=== PATIENT | male | born 1950 | race Caucasian/White ===

== ENCOUNTER 2017-02-19 11:51 | Inpatient (IN) | payer OTHER ==
[~2017-02-19] VITALS: Ht 177.8 cm; Wt 83.1 kg
[~2017-02-19 11:51] MED LIST: ALBU18 IN; ASPI-247; BUDE0.5S NEB; CARV3.1240; FLUT500M2 IN; FORM1POW2; IBUP1POW8; IPRAAER6 IN; LISI-275; LORA-205 PO; NITR0.4S29 SL; PLAVIX 75MG; SERT-135 PO; SIMV-8; SLEEP AIDS; TRAM50TA2; ZALE10CA44 PO
[2017-02-19 12:25] LABS: Basophils # (auto) 0.1 uL; Basophils % (auto) 1.2 % (0.0-2.0); Eosinophils # (auto) 0.2 uL; Eosinophils % (auto) 1.7 % (0.0-7.0); Hematocrit 45.3 % (41.0-53.0); Hemoglobin 14.9 g/dL (13.5-17.5); Lymphocytes # (auto) 2.4 uL; Lymphocytes % (auto) 24.5 % (10.0-50.0); Mean Corpuscular Hemoglobin 28.7 pg (28.0-32.0); Mean Corpuscular Volume 87.1 fL (80.0-100.0); Mean Platelet Volume 8.4 fL (7.4-10.4); Monocytes # (auto) 0.6 uL; Monocytes % (auto) 5.9 % (0.0-12.0); Neutrophils # (auto) 6.5 uL; Neutrophils % (auto) 66.7 % (37.0-80.0); Platelet Count (auto) 311 10^3/uL (140-450); Red Cell Distribution Width 16.8 % (11.6-16.0); SUSPECT VIEW TRANSMISSION; White Blood Cell 9.7 10^3/uL (4.4-10.8)
[2017-02-19 12:47] LABS: Albumin 3.7 g/dL (3.4-5.0); Alkaline Phosphatase 94 U/L (45-117); Anion Gap 5 (5-15); Aspartate Aminotransferase 12 U/L (15-37); BUN/Creatinine Ratio 20.5; Bilirubin, Total 0.4 mg/dL (0.2-1.0); Blood Urea Nitrogen 18 mg/dL (7-18); Calcium 8.7 mg/dL (8.5-10.1); Carbon Dioxide 29 mmol/L (21-32); Chloride 106 mmol/L (98-107); GFR African American 112 mL/min; GFR Non-African American 92 mL/min; Glucose 101 mg/dL (74-106); Magnesium 2.5 mg/dL (1.6-2.6); Potassium 4.8 mmol/L (3.5-5.1); Sodium 140 mmol/L (136-145); Total Protein 7.2 g/dL (6.4-8.2)
[2017-02-19] MEDS ORDERED: IPRATROPIUM BROM 0.5 MG/2.5ML INH SOL NEB ONE (13:30)
[2017-02-19] MEDS ORDERED: ALBUTEROL SULF 2.5 MG/0.5ML(0.5%) NEB SOLN NEB ONE (13:30)
[2017-02-19] MEDS ORDERED: methylPREDNISolone SOD SUCC 125 MG/2 ML VL IV ONE (13:30)
[2017-02-19] MEDS ORDERED: LORazepam 2MG/ML-1ML VIAL IV ONE (14:15)
[2017-02-19] MEDS ORDERED: AZITHROMYCIN 500MG/D5W 250ML 250 ML IV ONE ×2 (16:00→17:30)
[2017-02-19] MEDS ORDERED: cefTRIAXone 1GM/50ML D5W 50 ML IV ONE ×2 (16:00→16:45)
[2017-02-19 16:39] VITALS: BP 128/83
[2017-02-19] MEDS ORDERED: CLOPIDOGREL BISULFATE 75 MG TAB PO ONE (17:00)
[2017-02-19] MEDS ORDERED: SERTRALINE HCL 50 MG TAB PO ONE (17:00)
[2017-02-19] MEDS ORDERED: LISINOPRIL 5 MG TAB PO ONE (17:00)
[2017-02-19] MEDS ORDERED: ASPirin 81 mg TAB PO ONE (17:00)
[2017-02-19] MEDS ORDERED: BUDESONIDE (INHALATION) 0.5 MG/2 ML NEB ONE (18:59)
[2017-02-19] MEDS ORDERED: ALBUTEROL SULF 2.5 MG/0.5ML(0.5%) NEB SOLN ONE (18:59)
[2017-02-19] MEDS ORDERED: IPRATROPIUM BROM 0.5 MG/2.5ML INH SOL ONE (18:59)
[2017-02-19] MEDS ORDERED: CLOP75TA41 PO (19:32)
[2017-02-19] MEDS ORDERED: SIMV-13 PO (19:32)
[2017-02-19 22:00] VITALS: BP 119/62
[2017-02-19] MEDS ORDERED: CARVEDILOL 3.125 MG TAB PO SCH (22:00)
[2017-02-19] MEDS ORDERED: methylPREDNISolone SOD SUCC 40 MG/ML VL IV SCH (22:00)
[2017-02-19] MEDS ORDERED: ATORVASTATIN 20 MG TAB PO SCH ×2 (22:00)
[2017-02-19] MEDS ORDERED: BUDESONIDE (INHALATION) 0.5 MG/2 ML NEB NEB SCH (22:00)
[2017-02-19] MEDS: methylPREDNISolone SOD SUCC 40 MG/ML VL IV SCH (22:12)
[2017-02-19] MEDS: CARVEDILOL 3.125 MG TAB PO SCH (22:13)
[2017-02-19] MEDS ORDERED: TEMAZEPAM 15 MG CAP PO PRN (22:30)
[2017-02-19] MEDS: HYDROcodone-ACET 5/325MG TAB PO PRN (23:42)
[2017-02-20 05:00] VITALS: BP 111/61
[2017-02-20] MEDS ORDERED: IPRATROPIUM BROM 0.5 MG/2.5ML INH SOL ONE ×2 (05:27→10:33)
[2017-02-20] MEDS ORDERED: ALBUTEROL SULF 2.5 MG/0.5ML(0.5%) NEB SOLN ONE ×2 (05:27→10:33)
[2017-02-20] MEDS ORDERED: BUDESONIDE (INHALATION) 0.5 MG/2 ML NEB ONE (05:27)
[2017-02-20] MEDS: methylPREDNISolone SOD SUCC 40 MG/ML VL IV SCH ×2 (05:55→14:15)
[2017-02-20] MEDS: ALBUTEROL SULF 2.5 MG/0.5ML(0.5%) NEB SOLN NEB SCH ×2 (06:36→11:50)
[2017-02-20] MEDS: IPRATROPIUM BROM 0.5 MG/2.5ML INH SOL NEB SCH ×2 (06:36→11:50)
[2017-02-20 08:35] VITALS: BP 122/71
[2017-02-20] MEDS ORDERED: cefTRIAXone 1GM/50ML D5W 50 ML IV SCH (09:00)
[2017-02-20] MEDS: CARVEDILOL 3.125 MG TAB PO SCH (09:28)
[2017-02-20] MEDS ORDERED: ASPirin 81 mg TAB PO SCH ×2 (10:00)
[2017-02-20] MEDS ORDERED: CLOPIDOGREL BISULFATE 75 MG TAB PO SCH ×2 (10:00)
[2017-02-20] MEDS ORDERED: SERTRALINE HCL 50 MG TAB PO SCH ×2 (10:00)
[2017-02-20] MEDS ORDERED: LISINOPRIL 5 MG TAB PO SCH ×2 (10:00)
[2017-02-20] MEDS ORDERED: AZITHROMYCIN 500MG/D5W 250ML 250 ML IV SCH (10:00)
[2017-02-20] MEDS: HYDROcodone-ACET 5/325MG TAB PO PRN (11:30)
[2017-02-20 12:32] VITALS: BP_SYST 119; BP_SYST 143; BP_DIAS 63; BP_DIAS 77
== END 2017-02-20 15:55 | disposition home or self-care (01) | DRG 190 ==
LOC: ER 11:51 → OVERFLOW 11:52 → ER 12:13 → WEST WING 18:31
PROVIDERS: ADMIT Internal Medicine; ATTEND Family Medicine
DX: J44.1 Chronic obstructive pulmonary disease with (acute) exacerbation (principal); J96.00 Acute respiratory failure, unspecified whether with hypoxia or hypercapnia; J18.9 Pneumonia, unspecified organism; J44.0 Chronic obstructive pulmonary disease with (acute) lower respiratory infection; I25.10 Atherosclerotic heart disease of native coronary artery without angina pectoris; E78.5 Hyperlipidemia, unspecified; F17.210 Nicotine dependence, cigarettes, uncomplicated; I10 Essential (primary) hypertension
CPT/HCPCS: 36415; 71010; 71020; 80053; 83036; 83735; 84484; 85025; 93005; 94640; J0696

== ENCOUNTER 2017-03-09 13:15 | Inpatient (IN) | payer OTHER ==
[~2017-03-09] VITALS: Ht 177.8 cm; Wt 86.5 kg
[~2017-03-09 13:15] MED LIST changes: -ALBU18 IN; -BUDE0.5S NEB; +CLOP75TA41 PO; -PLAVIX 75MG; +SIMV-13 PO; -SIMV-8; -SLEEP AIDS; -TRAM50TA2; -ZALE10CA44 PO
[2017-03-09 13:46] LABS: Basophils # (auto) 0 uL; Basophils % (auto) 0.4 % (0.0-2.0); Eosinophils # (auto) 0.1 uL; Eosinophils % (auto) 1.5 % (0.0-7.0); Hematocrit 46.9 % (41.0-53.0); Hemoglobin 15.6 g/dL (13.5-17.5); Lymphocytes # (auto) 1.9 uL; Lymphocytes % (auto) 23.9 % (10.0-50.0); Mean Corpuscular Hemoglobin 28.7 pg (28.0-32.0); Mean Corpuscular Hgb Conc. 33.3 g/dL (32.0-36.0); Mean Corpuscular Volume 86.3 fL (80.0-100.0); Mean Platelet Volume 8.1 fL (7.4-10.4); Monocytes # (auto) 0.5 uL; Monocytes % (auto) 6.5 % (0.0-12.0); Neutrophils # (auto) 5.4 uL; Neutrophils % (auto) 67.7 % (37.0-80.0); Platelet Count (auto) 298 10^3/uL (140-450); White Blood Cell 8.1 10^3/uL (4.4-10.8)
[2017-03-09 14:10] LABS: Albumin 3.7 g/dL (3.4-5.0); Anion Gap 12 (5-15); Aspartate Aminotransferase 13 U/L (15-37); BUN/Creatinine Ratio 13.3; Blood Urea Nitrogen 11 mg/dL (7-18); Calcium 8.8 mg/dL (8.5-10.1); Carbon Dioxide 24 mmol/L (21-32); Chloride 105 mmol/L (98-107); GFR African American 120 mL/min; GFR Non-African American 99 mL/min; Glucose 111 mg/dL (74-106); Sodium 141 mmol/L (136-145)
[2017-03-09 14:15] LABS: Alkaline Phosphatase 84 U/L (45-117); Bilirubin, Total 0.5 mg/dL (0.2-1.0); Total Protein 7.4 g/dL (6.4-8.2)
[2017-03-09] MEDS ORDERED: methylPREDNISolone SOD SUCC 125 MG/2 ML VL IV ONE (16:30)
[2017-03-09] MEDS ORDERED: LORazepam 2MG/ML-1ML VIAL IV ONE (16:30)
[2017-03-09] MEDS: SODIUM CHLORIDE 0.9% 1,000 ML IV SCH (16:30)
[2017-03-09] MEDS ORDERED: IPRATROPIUM BROM 0.5 MG/2.5ML INH SOL NEB ONE (16:30)
[2017-03-09] MEDS ORDERED: cefTRIAXone 1GM/50ML D5W 50 ML IV ONE (16:30)
[2017-03-09] MEDS ORDERED: ALBUTEROL SULF 2.5 MG/0.5ML(0.5%) NEB SOLN NEB ONE (16:30)
[2017-03-09] MEDS ORDERED: LACTULOSE 20Gm/30ML SOLN PO PRN (16:45)
[2017-03-09] MEDS ORDERED: MORPHINE SULF INJ 2 MG/ML SYRINGE 1ML IV PRN (16:45)
[2017-03-09] MEDS ORDERED: LORazepam 0.5 MG TAB PO PRN (16:45)
[2017-03-09] MEDS ORDERED: PROMETHAZINE HCL 25 MG/ML 1ML IV PRN (16:45)
[2017-03-09] MEDS ORDERED: ACETAMINOPHEN 500 MG TAB PO PRN (16:45)
[2017-03-09] MEDS ORDERED: ALBUTEROL SULF 2.5 MG/0.5ML(0.5%) NEB SOLN NEB PRN (16:45)
[2017-03-09] MEDS ORDERED: NITROGLYCERIN 0.4 MG SL TAB SL PRN (16:45)
[2017-03-09] MEDS ORDERED: ENOXAPARIN SOD 40 MG/0.4 ML SYRINGE SC ONE (17:30)
[2017-03-09] MEDS: methylPREDNISolone SOD SUCC 40 MG/ML VL IV SCH (18:00)
[2017-03-09] MEDS: IPRATROPIUM BROM 0.5 MG/2.5ML INH SOL NEB SCH ×2 (18:19→23:58)
[2017-03-09] MEDS: ALBUTEROL SULF 2.5 MG/0.5ML(0.5%) NEB SOLN NEB SCH ×2 (18:19→23:58)
[2017-03-09] MEDS: DOXYCYCLINE HYC 100MG/250ML 250 ML IV SCH (18:30)
[2017-03-09] MEDS: HYDROcodone-ACET 5/325MG TAB PO PRN (20:04)
[2017-03-09 20:17] LABS: Urine Bilirubin Negative (Negative); Urine Blood Negative /uL (Negative); Urine Color Yellow (Yellow); Urine Glucose Normal (Normal); Urine Ketone Negative (Negative); Urine Mucus FEW (None Seen); Urine Nitrite Negative (Negative); Urine RBC 2 /hpf (0 - 3)
[2017-03-09 21:34] VITALS: BP 117/55
[2017-03-09] MEDS: MORPHINE SULF INJ 2 MG/ML SYRINGE 1ML IV PRN (21:47)
[2017-03-09 21:56] VITALS: BP 108/52
[2017-03-09] MEDS: TEMAZEPAM 15 MG CAP PO PRN (22:32)
[2017-03-10 05:11] VITALS: BP 107/65
[2017-03-10] MEDS: SODIUM CHLORIDE 0.9% 1,000 ML IV SCH ×2 (05:33→21:20)
[2017-03-10] MEDS: DOXYCYCLINE HYC 100MG/250ML 250 ML IV SCH ×2 (05:33→18:27)
[2017-03-10] MEDS: methylPREDNISolone SOD SUCC 40 MG/ML VL IV SCH ×5 (05:34→23:34)
[2017-03-10] MEDS: IPRATROPIUM BROM 0.5 MG/2.5ML INH SOL NEB SCH ×4 (06:13→22:43)
[2017-03-10] MEDS: ALBUTEROL SULF 2.5 MG/0.5ML(0.5%) NEB SOLN NEB SCH ×2 (06:13→11:34)
[2017-03-10 09:00] VITALS: BP 119/66
[2017-03-10] MEDS: MORPHINE SULF INJ 2 MG/ML SYRINGE 1ML IV PRN ×3 (09:09→21:19)
[2017-03-10] MEDS: ENOXAPARIN SOD 40 MG/0.4 ML SYRINGE SC SCH (10:33)
[2017-03-10 13:00] VITALS: BP 124/64
[2017-03-10] MEDS ORDERED: SERTRALINE HCL 50 MG TAB PO ONE (16:00)
[2017-03-10] MEDS ORDERED: CARVEDILOL 3.125 MG TAB PO ONE (16:00)
[2017-03-10] MEDS ORDERED: ASPirin 325 MG TAB PO ONE (16:00)
[2017-03-10] MEDS ORDERED: LISINOPRIL 5 MG TAB PO ONE (16:00)
[2017-03-10] MEDS ORDERED: CLOPIDOGREL BISULFATE 75 MG TAB PO ONE (16:00)
[2017-03-10 17:00] VITALS: BP 136/70
[2017-03-10] MEDS: LORazepam 0.5 MG TAB PO PRN (17:07)
[2017-03-10] MEDS: BUDESONIDE (INHALATION) 0.5 MG/2 ML NEB NEB SCH (19:20)
[2017-03-10 22:23] VITALS: BP 124/69
[2017-03-10] MEDS: TEMAZEPAM 15 MG CAP PO PRN (22:29)
[2017-03-10] MEDS: ATORVASTATIN 20 MG TAB PO SCH (22:29)
[2017-03-11] MEDS: IPRATROPIUM BROM 0.5 MG/2.5ML INH SOL NEB SCH ×5 (02:41→21:53)
[2017-03-11] MEDS: DOXYCYCLINE HYC 100MG/250ML 250 ML IV SCH ×2 (05:19→18:10)
[2017-03-11 05:25] VITALS: BP 121/70
[2017-03-11] MEDS: LORazepam 0.5 MG TAB PO PRN ×3 (05:29→19:51)
[2017-03-11] MEDS: methylPREDNISolone SOD SUCC 40 MG/ML VL IV SCH ×3 (06:10→18:11)
[2017-03-11] MEDS: BUDESONIDE (INHALATION) 0.5 MG/2 ML NEB NEB SCH ×2 (07:17→19:02)
[2017-03-11] MEDS: MORPHINE SULF INJ 2 MG/ML SYRINGE 1ML IV PRN (08:48)
[2017-03-11] MEDS: SODIUM CHLORIDE 0.9% 1,000 ML IV SCH ×2 (08:49→21:24)
[2017-03-11 09:00] VITALS: BP 124/75
[2017-03-11] MEDS: SERTRALINE HCL 50 MG TAB PO SCH (10:01)
[2017-03-11] MEDS: CARVEDILOL 3.125 MG TAB PO SCH (10:02)
[2017-03-11] MEDS: ASPirin 325 MG TAB PO SCH (10:03)
[2017-03-11] MEDS: CLOPIDOGREL BISULFATE 75 MG TAB PO SCH (10:03)
[2017-03-11] MEDS: LISINOPRIL 5 MG TAB PO SCH (10:03)
[2017-03-11] MEDS: ENOXAPARIN SOD 40 MG/0.4 ML SYRINGE SC SCH (10:04)
[2017-03-11] MEDS: HYDROcodone-ACET 5/325MG TAB PO PRN ×2 (12:00→18:11)
[2017-03-11 13:00] VITALS: BP 118/66
[2017-03-11 17:00] VITALS: BP 129/72
[2017-03-11] MEDS: ALBUTEROL SULF 2.5 MG/0.5ML(0.5%) NEB SOLN NEB PRN (19:01)
[2017-03-11] MEDS: TEMAZEPAM 15 MG CAP PO PRN (21:23)
[2017-03-11] MEDS: ATORVASTATIN 20 MG TAB PO SCH (21:24)
[2017-03-11 22:00] VITALS: BP 114/64
[2017-03-12] MEDS: HYDROcodone-ACET 5/325MG TAB PO PRN (00:12)
[2017-03-12] MEDS: methylPREDNISolone SOD SUCC 40 MG/ML VL IV SCH ×2 (00:12→05:40)
[2017-03-12 05:00] VITALS: BP 106/68
[2017-03-12] MEDS: DOXYCYCLINE HYC 100MG/250ML 250 ML IV SCH (05:40)
[2017-03-12] MEDS: ALBUTEROL SULF 2.5 MG/0.5ML(0.5%) NEB SOLN NEB PRN (07:23)
[2017-03-12] MEDS: IPRATROPIUM BROM 0.5 MG/2.5ML INH SOL NEB SCH (07:24)
[2017-03-12 09:00] VITALS: BP 126/73
[2017-03-12] MEDS: ENOXAPARIN SOD 40 MG/0.4 ML SYRINGE SC SCH (09:08)
[2017-03-12] MEDS: CLOPIDOGREL BISULFATE 75 MG TAB PO SCH (09:09)
[2017-03-12] MEDS: LISINOPRIL 5 MG TAB PO SCH (09:09)
[2017-03-12] MEDS: ASPirin 325 MG TAB PO SCH (09:09)
[2017-03-12] MEDS: SERTRALINE HCL 50 MG TAB PO SCH (09:10)
[2017-03-12] MEDS: CARVEDILOL 3.125 MG TAB PO SCH (09:10)
[2017-03-12] MEDS: LORazepam 0.5 MG TAB PO PRN (09:16)
[2017-03-12 09:36] VITALS: BP 126/73
[2017-03-12] MEDS: SODIUM CHLORIDE 0.9% 1,000 ML IV SCH (11:17)
== END 2017-03-12 11:00 | disposition home or self-care (01) | DRG 190 ==
LOC: ER 13:17 → TELE 13:18 → TELE-WESTW 20:35
PROVIDERS: ADMIT Internal Medicine; ATTEND Internal Medicine
DX: J44.1 Chronic obstructive pulmonary disease with (acute) exacerbation (principal); J96.20 Acute and chronic respiratory failure, unspecified whether with hypoxia or hypercapnia; E78.5 Hyperlipidemia, unspecified; F17.210 Nicotine dependence, cigarettes, uncomplicated; I10 Essential (primary) hypertension; I25.10 Atherosclerotic heart disease of native coronary artery without angina pectoris; J98.4 Other disorders of lung; I25.2 Old myocardial infarction; Z82.0 Family history of epilepsy and other diseases of the nervous system; Z82.49 Family history of ischemic heart disease and other diseases of the circulatory system; Z82.3 Family history of stroke; Z95.5 Presence of coronary angioplasty implant and graft; Z99.81 Dependence on supplemental oxygen; Z79.899 Other long term (current) drug therapy; Z71.6 Tobacco abuse counseling
CPT/HCPCS: 36415; 71010; 80053; 81001; 84484; 85025; 87070; 87081; 87205; 93005; 94640; 94644; 96365; 96372; 96375; J0696; J3490

== ENCOUNTER 2017-04-21 08:03 | Emergency (ER) | payer OTHER ==
[~2017-04-21] VITALS: Ht 177.8 cm; Wt 79.4 kg
[2017-04-21] MEDS ORDERED: SODIUM CHLORIDE 0.9% 1,000 ML IV ONE (08:51)
[2017-04-21] MEDS ORDERED: MORPHINE SULFATE 4 MG/ML SYRG IV ONE (09:00)
[2017-04-21] MEDS ORDERED: ASPirin 81 mg TAB PO ONE (09:00)
[2017-04-21] MEDS ORDERED: NITROGLYCERIN 0.4 MG SL TAB SL ONE (09:00)
[2017-04-21] MEDS ORDERED: ONDANSETRON HCL 4 MG/2 ML VIAL IV ONE (09:00)
[2017-04-21 09:25] LABS: Basophils # (auto) 0 uL; Basophils % (auto) 0.5 % (0.0-2.0); CONDITION Y; Eosinophils # (auto) 0.2 uL; Eosinophils % (auto) 2.5 % (0.0-7.0); Hematocrit 43.9 % (41.0-53.0); Hemoglobin 14.8 g/dL (13.5-17.5); Lymphocytes # (auto) 1.9 uL; Lymphocytes % (auto) 23.7 % (10.0-50.0); Mean Corpuscular Hemoglobin 29.8 pg (28.0-32.0); Mean Corpuscular Hgb Conc. 33.7 g/dL (32.0-36.0); Mean Corpuscular Volume 88.3 fL (80.0-100.0); Mean Platelet Volume 7.9 fL (7.4-10.4); Monocytes # (auto) 0.4 uL; Monocytes % (auto) 5.1 % (0.0-12.0); Neutrophils # (auto) 5.4 uL; Neutrophils % (auto) 68.2 % (37.0-80.0); Platelet Count (auto) 317 10^3/uL (140-450); Red Cell Distribution Width 16.4 % (11.6-16.0); White Blood Cell 7.9 10^3/uL (4.4-10.8)
[2017-04-21 09:40] LABS: INR 0.98 (0.9-1.15); Partial Thromboplastin Time 27.7 sec (22.64-33.71); Prothrombin Time 10.7 sec (9.37-12.3)
[2017-04-21 09:55] LABS: Albumin 3.5 g/dL (3.4-5.0); Alkaline Phosphatase 70 U/L (45-117); Anion Gap 5 (5-15); Aspartate Aminotransferase 8 U/L (15-37); BUN/Creatinine Ratio 17.4; Bilirubin, Total 0.5 mg/dL (0.2-1.0); Blood Urea Nitrogen 12 mg/dL (7-18); Calcium 8.6 mg/dL (8.5-10.1); Carbon Dioxide 27 mmol/L (21-32); Chloride 106 mmol/L (98-107); GFR African American 148 mL/min; GFR Non-African American 122 mL/min; Glucose 97 mg/dL (74-106); Potassium 4.1 mmol/L (3.5-5.1); Sodium 138 mmol/L (136-145)
[2017-04-21] MEDS ORDERED: LORazepam 0.5 MG TAB PO ONE (10:00)
[2017-04-21 10:53] LABS: Urine Bilirubin Negative (Negative); Urine Blood Negative /uL (Negative); Urine Color Yellow (Yellow); Urine Glucose Normal (Normal); Urine Ketone Negative (Negative); Urine Mucus FEW (None Seen); Urine Nitrite Negative (Negative); Urine RBC 2 /hpf (0 - 3); Urine Squamous Epithelial Cell FEW /hpf (<5); Urine Urobilinogen Normal (Negative); Urine pH 5.5 (5.0-8.0)
[2017-04-21 11:04] VITALS: BP 112/69
== END 2017-04-21 12:17 | disposition home or self-care (01) ==
LOC: ER 08:03
DX: J44.9 Chronic obstructive pulmonary disease, unspecified (principal); F41.9 Anxiety disorder, unspecified; E78.5 Hyperlipidemia, unspecified; I10 Essential (primary) hypertension; I25.2 Old myocardial infarction; I25.10 Atherosclerotic heart disease of native coronary artery without angina pectoris; F17.210 Nicotine dependence, cigarettes, uncomplicated; Z98.61 Coronary angioplasty status
CPT/HCPCS: 36415; 71010; 80053; 81001; 84484; 85025; 85610; 85730; 93005; 96361; 96374; 96375; 99285; J2270; J2405; J7030

== ENCOUNTER 2018-01-25 17:28 | Emergency (ER) | payer OTHER ==
[~2018-01-25] VITALS: Ht 180.3 cm; Wt 90.7 kg
[2018-01-25 18:37] LABS: Basophils # (auto) 0 uL; Basophils % (auto) 0.7 % (0.0-2.0); Eosinophils # (auto) 0.2 uL; Eosinophils % (auto) 3.4 % (0.0-7.0); Hematocrit 41.6 % (41.0-53.0); Hemoglobin 13.9 g/dL (13.5-17.5); Lymphocytes # (auto) 1.8 uL; Lymphocytes % (auto) 27.1 % (10.0-50.0); Mean Corpuscular Hemoglobin 30.1 pg (28.0-32.0); Mean Corpuscular Hgb Conc. 33.3 g/dL (32.0-36.0); Mean Corpuscular Volume 90.2 fL (80.0-100.0); Monocytes # (auto) 0.4 uL; Monocytes % (auto) 6.5 % (0.0-12.0); Neutrophils % (auto) 62.3 % (37.0-80.0); Nucleated Red Blood Cells % 0.1 %; Platelet Count (auto) 241 10^3/uL (140-450); Red Blood Cells 4.61 10^6/uL (4.5-5.90); Red Cell Distribution Width 15.2 % (11.8-14.3); White Blood Cell 6.5 10^3/uL (4.4-10.8)
[2018-01-25 18:54] LABS: Albumin 3.4 g/dL (3.4-5.0); Calcium 8.4 mg/dL (8.5-10.1); Potassium 4.1 mmol/L (3.5-5.1)
[2018-01-25 18:57] LABS: BUN/Creatinine Ratio 17.1; Bilirubin, Total 0.3 mg/dL (0.2-1.0); Total Protein 6.5 g/dL (6.4-8.2)
[2018-01-25 20:08] LABS: Magnesium 2.2 mg/dL (1.6-2.6)
[2018-01-25 20:35] LABS: Urine Bacteria NONE SEEN /hpf (None Seen); Urine Blood Negative /uL (Negative); Urine Specific Gravity 1.007 (1.001-1.035); Urine WBC <1 /hpf (0 - 3)
[2018-01-25 20:42] VITALS: BP 109/73
[2018-01-25 20:42] LABS: INR 0.96 (0.9-1.15); Partial Thromboplastin Time 28.7 sec (22.64-33.71); Prothrombin Time 10.5 sec (9.37-12.3)
[2018-01-25 21:11] LABS: Alcohol, Urine < 3.0 mg/dL (0-5); Amphetamine Screen, Urine NEGATIVE (NEGATIVE); Barbiturate Scree,Urine NEGATIVE (NEGATIVE); Benzodiazephine Screen, Urine NEGATIVE (NEGATIVE); Cannabinoid Screen, Urine POSITIVE (NEGATIVE); Cocaine Screen, Urine NEGATIVE (NEGATIVE); Opiate Scree,Urine NEGATIVE (NEGATIVE); Phencyclidine Screen, Urine NEGATIVE (NEGATIVE)
== END 2018-01-25 21:25 | disposition home or self-care (01) ==
LOC: ER 17:28 → EDBD 17:28 → ER 21:25
DX: T50.901A Poisoning by unspecified drugs, medicaments and biological substances, accidental (unintentional), initial encounter (principal); G30.9 Alzheimer's disease, unspecified; F02.80 Dementia in other diseases classified elsewhere, unspecified severity, without behavioral disturbance, psychotic disturbance, mood disturbance, and anxiety; I10 Essential (primary) hypertension; I25.10 Atherosclerotic heart disease of native coronary artery without angina pectoris; I25.2 Old myocardial infarction; J44.9 Chronic obstructive pulmonary disease, unspecified; F17.210 Nicotine dependence, cigarettes, uncomplicated; Z45.2 Encounter for adjustment and management of vascular access device; Z79.82 Long term (current) use of aspirin; Z99.81 Dependence on supplemental oxygen; Y92.89 Other specified places as the place of occurrence of the external cause
CPT/HCPCS: 36415; 71045; 80053; 80307; 81001; 83735; 83880; 84484; 85025; 85610; 85730; 93005

== ENCOUNTER 2018-11-08 09:49 | Inpatient (IN) | payer OTHER | END 2018-11-09 11:20 | disposition home or self-care (01) | LOC: ER 09:49 → TELE 13:17 → TELE-CENTR 19:56 | DX: J44.1 Chronic obstructive pulmonary disease with (acute) exacerbation (principal); I25.10 Atherosclerotic heart disease of native coronary artery without angina pectoris; I10 Essential (primary) hypertension ==

== ENCOUNTER 2019-01-02 10:33 | Inpatient (IN) | payer OTHER | END 2019-01-04 09:20 | disposition left against medical advice (07) | LOC: ER 10:33 → EAST 01-03 07:38 → OVERFLOW 17:57 | DX: J96.20 Acute and chronic respiratory failure, unspecified whether with hypoxia or hypercapnia (principal); J44.1 Chronic obstructive pulmonary disease with (acute) exacerbation; Z95.5 Presence of coronary angioplasty implant and graft; I25.10 Atherosclerotic heart disease of native coronary artery without angina pectoris; I10 Essential (primary) hypertension ==

== ENCOUNTER 2019-03-14 23:10 | Emergency (ER) | payer OTHER ==
[~2019-03-14] VITALS: Ht 180.3 cm; Wt 81.6 kg
[~2019-03-14 23:10] MED LIST changes: +HYDR-4833 PO; -SERT-135 PO; +SERT100T PO
[2019-03-15 00:25] LABS: Basophils # (auto) 0.1 uL; Eosinophils # (auto) 0.3 uL; Eosinophils % (auto) 3.8 % (0.0-7.0); Hematocrit 46.2 % (41.0-53.0); Hemoglobin 14.9 g/dL (13.5-17.5); Lymphocytes # (auto) 1.8 uL; Lymphocytes % (auto) 25.6 % (10.0-50.0); Mean Corpuscular Hemoglobin 30.6 pg (28.0-32.0); Mean Corpuscular Hgb Conc. 32.2 g/dL (32.0-36.0); Mean Corpuscular Volume 94.8 fL (80.0-100.0); Monocytes # (auto) 0.5 uL; Monocytes % (auto) 6.5 % (0.0-12.0); Neutrophils # (auto) 4.5 uL; Neutrophils % (auto) 63.1 % (37.0-80.0); Platelet Count (auto) 238 10^3/uL (140-450); Red Blood Cells 4.87 10^6/uL (4.5-5.90); Red Cell Distribution Width 14.4 % (11.8-14.3); White Blood Cell 7.1 10^3/uL (4.4-10.8)
[2019-03-15 00:34] LABS: Alanine Aminotransferase 17 U/L (16-61); Albumin 3.1 g/dL (3.4-5.0); Anion Gap 9 (5-15); Aspartate Aminotransferase 13 U/L (15-37); BUN/Creatinine Ratio 11.3; Blood Urea Nitrogen 9 mg/dL (7-18); Calcium 8.2 mg/dL (8.5-10.1); Carbon Dioxide 23 mmol/L (21-32); Chloride 108 mmol/L (98-107); GFR African American 124 mL/min; GFR Non-African American 102 mL/min; Glucose 77 mg/dL (74-106); Potassium 3.8 mmol/L (3.5-5.1); Sodium 140 mmol/L (136-145)
[2019-03-15 00:36] LABS: Alkaline Phosphatase 79 U/L (45-117); Bilirubin, Total 0.4 mg/dL (0.2-1.0); Total Protein 6.7 g/dL (6.4-8.2)
[2019-03-15 01:20] VITALS: BP 118/66
== END 2019-03-15 02:47 | disposition left against medical advice (07) ==
LOC: EDBD 23:10 → ER 23:11
DX: R07.89 Other chest pain (principal); Z53.21 Procedure and treatment not carried out due to patient leaving prior to being seen by health care provider
CPT/HCPCS: 36415; 71045; 80053; 83880; 84484; 85025; 93005

== ENCOUNTER 2019-04-29 04:06 | Emergency (ER) | payer OTHER ==
[~2019-04-29] VITALS: Ht 180.3 cm; Wt 81.6 kg
[2019-04-29 05:06] LABS: Basophils # (auto) 0.1 uL; Basophils % (auto) 0.8 % (0.0-2.0); Eosinophils # (auto) 0.2 uL; Hematocrit 44.2 % (41.0-53.0); Hemoglobin 14.7 g/dL (13.5-17.5); Lymphocytes % (auto) 30.3 % (10.0-50.0); Mean Corpuscular Hemoglobin 30.3 pg (28.0-32.0); Mean Corpuscular Hgb Conc. 33.2 g/dL (32.0-36.0); Mean Corpuscular Volume 91.3 fL (80.0-100.0); Monocytes # (auto) 0.5 uL; Neutrophils # (auto) 3.8 uL; Neutrophils % (auto) 57.9 % (37.0-80.0); Platelet Count (auto) 267 10^3/uL (140-450); Red Blood Cells 4.84 10^6/uL (4.5-5.90); Red Cell Distribution Width 14.4 % (11.8-14.3); White Blood Cell 6.6 10^3/uL (4.4-10.8)
[2019-04-29 05:24] LABS: Alanine Aminotransferase 22 U/L (16-61); Albumin 3.4 g/dL (3.4-5.0); Anion Gap 6 (5-15); Blood Urea Nitrogen 16 mg/dL (7-18); Calcium 8.3 mg/dL (8.5-10.1); Carbon Dioxide 25 mmol/L (21-32); Chloride 109 mmol/L (98-107); Glucose 95 mg/dL (74-106); Magnesium 2.4 mg/dL (1.6-2.6); Potassium 3.6 mmol/L (3.5-5.1); Sodium 140 mmol/L (136-145)
[2019-04-29 05:30] LABS: Alkaline Phosphatase 74 U/L (45-117); Aspartate Aminotransferase 16 U/L (15-37); BUN/Creatinine Ratio 19.5; Bilirubin, Total 0.5 mg/dL (0.2-1.0); GFR African American 121 mL/min; GFR Non-African American 100 mL/min; Total Protein 6.8 g/dL (6.4-8.2)
[2019-04-29] MEDS ORDERED: IPRATROPIUM BROM 0.5 MG/2.5ML INH SOL HHN ONE (06:45)
[2019-04-29] MEDS ORDERED: methylPREDNISolone SOD SUCC 125 MG/2 ML VL IV ONE (06:45)
[2019-04-29] MEDS ORDERED: ALBUTEROL SULF 2.5 MG/0.5ML(0.5%) NEB SOLN HHN ONE (06:45)
[2019-04-29 08:44] VITALS: BP 146/90
== END 2019-04-29 09:05 | disposition home or self-care (01) ==
LOC: EDBD 04:06 → ER 04:14
DX: J20.9 Acute bronchitis, unspecified (principal); J44.1 Chronic obstructive pulmonary disease with (acute) exacerbation; E78.5 Hyperlipidemia, unspecified; I10 Essential (primary) hypertension; I25.2 Old myocardial infarction; F12.10 Cannabis abuse, uncomplicated; F17.210 Nicotine dependence, cigarettes, uncomplicated; Z98.61 Coronary angioplasty status; Z86.73 Personal history of transient ischemic attack (TIA), and cerebral infarction without residual deficits
CPT/HCPCS: 36415; 71045; 80053; 83735; 83880; 84484; 85025; 93005; 94644; 94761; 96374; 99284; J2930; J7611; J7644

== ENCOUNTER 2019-09-12 11:00 | Emergency (ER) | payer OTHER ==
[~2019-09-12] VITALS: Ht 180.3 cm; Wt 74.8 kg
[2019-09-12 11:09] VITALS: BP 125/81
[2019-09-12] MEDS ORDERED: SODIUM CHLORIDE 0.9% 1,000 ML IV ONE (13:21)
[2019-09-12 14:00] LABS: Basophils # (auto) 0 uL; Basophils % (auto) 0.6 % (0.0-2.0); Eosinophils # (auto) 0.2 uL; Hematocrit 46.2 % (41.0-53.0); Hemoglobin 15.5 g/dL (13.5-17.5); Lymphocytes # (auto) 1.8 uL; Lymphocytes % (auto) 21.7 % (10.0-50.0); Mean Corpuscular Hemoglobin 30.9 pg (28.0-32.0); Mean Corpuscular Hgb Conc. 33.6 g/dL (32.0-36.0); Monocytes # (auto) 0.4 uL; Monocytes % (auto) 5.3 % (0.0-12.0); Neutrophils % (auto) 70.4 % (37.0-80.0); Platelet Count (auto) 291 10^3/uL (140-450); Red Blood Cells 5.02 10^6/uL (4.5-5.90); Red Cell Distribution Width 14.2 % (11.8-14.3); White Blood Cell 8.4 10^3/uL (4.4-10.8)
[2019-09-12 14:20] LABS: Alanine Aminotransferase 18 U/L (16-61); Albumin 3.6 g/dL (3.4-5.0); Anion Gap 4 (5-15); Aspartate Aminotransferase 14 U/L (15-37); BUN/Creatinine Ratio 14.5; Blood Urea Nitrogen 11 mg/dL (7-18); Calcium 8.7 mg/dL (8.5-10.1); Carbon Dioxide 27 mmol/L (21-32); Chloride 106 mmol/L (98-107); GFR African American 132 mL/min; GFR Non-African American 109 mL/min; Glucose 103 mg/dL (74-106); Potassium 4.4 mmol/L (3.5-5.1); Sodium 137 mmol/L (136-145)
[2019-09-12 14:25] LABS: Alkaline Phosphatase 76 U/L (45-117); Bilirubin, Total 0.6 mg/dL (0.2-1.0); Total Protein 7.3 g/dL (6.4-8.2)
[2019-09-12] MEDS ORDERED: LORazepam 0.5 MG TAB ONE (17:23)
[2019-09-12] MEDS ORDERED: LORazepam 0.5 MG TAB PO ONE (17:30)
== END 2019-09-12 19:14 | disposition home or self-care (01) ==
LOC: ER 11:00 → EDBD 11:00 → ER 19:14
DX: E86.0 Dehydration (principal); F41.9 Anxiety disorder, unspecified; I25.10 Atherosclerotic heart disease of native coronary artery without angina pectoris; J44.9 Chronic obstructive pulmonary disease, unspecified; E78.5 Hyperlipidemia, unspecified; I10 Essential (primary) hypertension; I25.2 Old myocardial infarction; F17.210 Nicotine dependence, cigarettes, uncomplicated
CPT/HCPCS: 36415; 80053; 84484; 85025; 96360; 99283; J7030

== ENCOUNTER 2019-10-15 10:30 | Inpatient (IN) | payer OTHER ==
[~2019-10-15] VITALS: Ht 177.8 cm; Wt 69.9 kg
[2019-10-15 11:13] LABS: Basophils # (auto) 0.1 uL; Eosinophils # (auto) 0.1 uL; Mean Corpuscular Volume 91.8 fL (80.0-100.0); White Blood Cell 6.8 10^3/uL (4.4-10.8)
[2019-10-15 11:15] LABS: Basophils % (auto) 0.9 % (0.0-2.0); Eosinophils % (auto) 1.9 % (0.0-7.0); Hematocrit 43.2 % (41.0-53.0); Hemoglobin 14.5 g/dL (13.5-17.5); Lymphocytes # (auto) 1.6 uL; Lymphocytes % (auto) 24.1 % (10.0-50.0); Mean Corpuscular Hemoglobin 30.9 pg (28.0-32.0); Mean Corpuscular Hgb Conc. 33.6 g/dL (32.0-36.0); Monocytes # (auto) 0.4 uL; Monocytes % (auto) 6.1 % (0.0-12.0); Neutrophils # (auto) 4.5 uL; Platelet Count (auto) 458 10^3/uL (140-450); Red Blood Cells 4.71 10^6/uL (4.5-5.90); Red Cell Distribution Width 14.5 % (11.8-14.3)
[2019-10-15 11:18] LABS: Urine Amorphous Crystal FEW /hpf (None Seen); Urine Bacteria NONE SEEN /hpf (None Seen); Urine Blood Negative /uL (Negative); Urine Mucus FEW (None Seen); Urine WBC <1 /hpf (0 - 3)
[2019-10-15 11:29] LABS: Albumin 3.2 g/dL (3.4-5.0); Anion Gap 3 (5-15); Blood Urea Nitrogen 11 mg/dL (7-18); Calcium 8.7 mg/dL (8.5-10.1); Carbon Dioxide 31 mmol/L (21-32); Chloride 104 mmol/L (98-107); Glucose 82 mg/dL (74-106); Potassium 4.2 mmol/L (3.5-5.1); Sodium 138 mmol/L (136-145)
[2019-10-15 11:34] LABS: Alanine Aminotransferase 17 U/L (16-61); Alkaline Phosphatase 85 U/L (45-117); Aspartate Aminotransferase 14 U/L (15-37); BUN/Creatinine Ratio 13.8; Bilirubin, Total 0.4 mg/dL (0.2-1.0); GFR African American 124 mL/min; GFR Non-African American 102 mL/min; Total Protein 7.5 g/dL (6.4-8.2)
[2019-10-15] MEDS ORDERED: ALPRAZolam 0.5 MG TAB PO ONE (12:30)
[2019-10-15 13:13] LABS: INR 1.06 (0.9-1.15); Partial Thromboplastin Time 29.5 sec (23.64-32.05)
[2019-10-15] MEDS ORDERED: MORPHINE SULF INJ 2 MG/ML SYRINGE 1ML IV ONE (14:15)
[2019-10-15] MEDS ORDERED: ONDANSETRON HCL 4 MG/2 ML VIAL IV ONE (14:15)
[2019-10-15] MEDS ORDERED: NICOTINE 21MG/24 HR TOPICAL PATCH TD ONE (15:30)
[2019-10-15] MEDS ORDERED: ONDANSETRON HCL 4 MG/2 ML VIAL IV PRN (15:30)
[2019-10-15] MEDS ORDERED: hydrALAZINE HCL 20 MG/ML VL IV PRN (15:30)
[2019-10-15] MEDS ORDERED: NITROGLYCERIN 0.4 MG SL TAB SL PRN (15:30)
[2019-10-15] MEDS ORDERED: MORPHINE SULF INJ 2 MG/ML SYRINGE 1ML IV PRN (15:30)
[2019-10-15] MEDS ORDERED: ACETAMINOPHEN 500 MG TAB PO PRN (15:30)
[2019-10-15] MEDS ORDERED: SODIUM CHLORIDE 0.9% 1,000 ML IV ONE (16:45)
[2019-10-15] MEDS: ALPRAZolam 0.25 MG TAB PO PRN (16:52)
--- NOTE | 2019-10-15 18:00 | NUR ---
Telemetry admit from ER [facility] admitted to Telemetry unit after SBAR received. Patient oriented to Chuckie Tobias, primary RN, unit, room, bed, and unit policies regarding patient care and visiting hours. Patient now on continuous telemetry monitoring, tele box # 6 and telemetry reading on arrival to unit is [id number]. Patient placed on bedside oxygen, weighed by bed scale and encouraged to call if they need something. All questions and concerns addressed, patient verbalized understanding.
--- NOTE | 2019-10-15 19:00 | NUR ---
Opening Shift Note Assumed care of patient, awake and alert. No S/S of distress/SOB or pain. Instructed on POC and to call for assist PRN, will continue to monitor for changes Q1hr and PRN.
[2019-10-15 22:00] VITALS: BP 99/60
[2019-10-15] MEDS: CARVEDILOL 3.125 MG TAB PO SCH (22:00)
[2019-10-15] MEDS: ATORVASTATIN 20 MG TAB PO SCH (22:06)
[2019-10-16] MEDS: ALPRAZolam 0.25 MG TAB PO PRN ×3 (00:45→15:56)
[2019-10-16] MEDS: HYDROcodone-ACET 5/325MG TAB PO PRN ×2 (04:47→18:29)
[2019-10-16 05:00] VITALS: BP 102/61
[2019-10-16 07:00] LABS: Basophils # (auto) 0.1 uL; Basophils % (auto) 0.8 % (0.0-2.0); Eosinophils # (auto) 0.2 uL; Eosinophils % (auto) 2.8 % (0.0-7.0); Hematocrit 39.2 % (41.0-53.0); Hemoglobin 13.4 g/dL (13.5-17.5); Lymphocytes # (auto) 1.9 uL; Lymphocytes % (auto) 22.3 % (10.0-50.0); Mean Corpuscular Hemoglobin 31.3 pg (28.0-32.0); Mean Corpuscular Hgb Conc. 34.2 g/dL (32.0-36.0); Mean Corpuscular Volume 91.6 fL (80.0-100.0); Monocytes # (auto) 0.5 uL; Monocytes % (auto) 5.7 % (0.0-12.0); Neutrophils # (auto) 5.8 uL; Neutrophils % (auto) 68.4 % (37.0-80.0); Platelet Count (auto) 357 10^3/uL (140-450); Red Blood Cells 4.28 10^6/uL (4.5-5.90); Red Cell Distribution Width 14.3 % (11.8-14.3); White Blood Cell 8.5 10^3/uL (4.4-10.8)
[2019-10-16 07:16] LABS: INR 1.07 (0.9-1.15); Partial Thromboplastin Time 28.9 sec (23.64-32.05)
[2019-10-16 07:19] LABS: BUN/Creatinine Ratio 21.4; Calcium 8.4 mg/dL (8.5-10.1); Potassium 4.6 mmol/L (3.5-5.1)
[2019-10-16 09:26] VITALS: BP 101/57
[2019-10-16] MEDS: CARVEDILOL 3.125 MG TAB PO SCH ×2 (10:00→21:36)
[2019-10-16] MEDS: LISINOPRIL 10 MG TAB PO SCH (10:00)
[2019-10-16] MEDS: NICOTINE 21MG/24 HR TOPICAL PATCH TD SCH (10:02)
[2019-10-16] MEDS: FAMOTIDINE 20 MG TAB PO SCH (10:05)
[2019-10-16] MEDS: ASPirin-EC 81 mg tab PO SCH (10:06)
[2019-10-16 13:21] VITALS: BP 102/61
[2019-10-16] MEDS ORDERED: ENOXAPARIN SOD 80 MG/0.8ML SYRINGE SC ONE (14:15)
[2019-10-16] MEDS ORDERED: TEMAZEPAM 15 MG CAP PO PRN (15:00)
[2019-10-16 16:54] VITALS: BP 106/61
[2019-10-16] MEDS ORDERED: SODIUM CHLORIDE 0.9% 1,000 ML IV ONE (17:45)
[2019-10-16 20:00] VITALS: BP 101/57
[2019-10-16] MEDS: ATORVASTATIN 20 MG TAB PO SCH (21:35)
[2019-10-16 22:00] VITALS: BP 104/53
[2019-10-17 05:57] VITALS: BP 108/61
--- NOTE | 2019-10-17 06:55 | NUR ---
PT TO [facility].
--- NOTE | 2019-10-17 06:58 | NUR ---
PT RESTED WELL THROUGHOUT THE SHIFT;NO C/O PAIN.
[2019-10-17] MEDS ORDERED: LIDOCAINE 2%HCL (LOCAL ANESTH.) INJ 20ML MDV ONE (07:13)
[2019-10-17] MEDS ORDERED: IODIXANOL 320MG/ML 100ML BTL IV ONE ×2 (07:13→07:50)
--- NOTE | 2019-10-17 07:15 | NUR ---
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 Will follow up with Biology Specimen Technician about status.
[2019-10-17 07:28] LABS: Cholesterol 102 mg/dL (< 200); HDL Cholesterol 41 mg/dL (40-59); LDL Cholesterol 46 mg/dL (< 100); Triglycerides 93 mg/dL (< 150)
[2019-10-17] MEDS ORDERED: ANGIOMAX 250 MG VIAL IV ONE (07:49)
[2019-10-17] MEDS ORDERED: fentaNYL CITRATE 100 MCG/2 ML VL ONE (07:49)
[2019-10-17] MEDS ORDERED: MIDAZOLAM HCL 1MG/1ML-2 ML VIAL ONE (07:49)
[2019-10-17] MEDS ORDERED: HEPARIN SODIUM (PORCINE) 5000 UNITS/ML 1ML VIAL ONE (07:50)
[2019-10-17] MEDS ORDERED: SODIUM CHL 0.9% 0 ML ONE (07:50)
[2019-10-17] MEDS ORDERED: VERAPAMIL 2.5MG/ML INJ 2ML VIAL IV ONE (07:51)
--- NOTE | 2019-10-17 09:00 | NUR ---
Received report from Jacqueline CURRY [employer] Nutrition Territory Manager. Patient back to his room S/P [facility] with vasc band left wrist performed by Dr. Chou. Patient is alert and oriented, not in respiratory distress. Bed alarm on and side rails up x2. Will continue to monitor.
[2019-10-17 09:15] VITALS: BP 112/75
--- NOTE | 2019-10-17 09:30 | NUR ---
Deflated 2ml of air on the vasc band left wrist, no bleeding noted.
[2019-10-17] MEDS: ALPRAZolam 0.25 MG TAB PO PRN (09:58)
[2019-10-17] MEDS: FAMOTIDINE 20 MG TAB PO SCH (09:58)
[2019-10-17] MEDS: ASPirin-EC 81 mg tab PO SCH (09:59)
[2019-10-17] MEDS: NICOTINE 21MG/24 HR TOPICAL PATCH TD SCH (09:59)
[2019-10-17] MEDS: LISINOPRIL 10 MG TAB PO SCH (10:00)
[2019-10-17] MEDS: CARVEDILOL 3.125 MG TAB PO SCH (10:00)
--- NOTE | 2019-10-17 10:00 | NUR ---
Deflated 2ml of air via vasc band left wrist, no bleeding noted.
--- NOTE | 2019-10-17 10:30 | NUR ---
Deflated 2ml of air via vasc band left wrist, no bleeding noted.
--- NOTE | 2019-10-17 11:00 | NUR ---
Deflated 2ml of air via vasc band, left wrist, no bleeding noted.
--- NOTE | 2019-10-17 12:00 | NUR ---
Deflated 2ml of air via vasc band, left wrist. No bleeding on the site noted then vasc band removed and apply gauze and Tegaderm dressing.
[2019-10-17] MEDS: HYDROcodone-ACET 5/325MG TAB PO PRN (12:15)
--- NOTE | 2019-10-17 13:15 | NUR ---
Patient adamantly refused discharge today, stated feeling weak and short of breath on and off. VS taken and recorded. Left a message to Dr. Montes, waiting for call back.
[2019-10-17 13:23] VITALS: BP 114/62
--- NOTE | 2019-10-17 14:00 | NUR ---
Patient changed his mind and agreed with the discharge.
[2019-10-17 14:21] VITALS: BP 114/62
--- NOTE | 2019-10-17 16:45 | NUR ---
Discharge instructions given as ordered. Encourage to follow up with PMD Dr. Medina of [facility] on 11-11-2019 at 3:45pm as instructed. All questions and concerns addressed. Patient verbalized understanding. Medication reconciliation form completed and copy given to patient. IV removed with catheter intact, pressure dressing applied. Telemetry unit returned to ICU. Patient taken to vehicle via wheelchair with all personal belongings, accompanied by staff and family member. No distress noted at time of departure.
[2019-10-17 17:34] VITALS: BP 113/61
== END 2019-10-17 16:45 | disposition home or self-care (01) | DRG 287 ==
LOC: ER 10:30 → EDBD 10:30 → TELE 10:31 → TELE-EAST 18:37
PROVIDERS: ADMIT Nurse Practitioner Acute Care; ATTEND Internal Medicine Geriatric Medicine
PROC: 4A023N7 Measurement of Cardiac Sampling and Pressure, Left Heart, Percutaneous Approach (ICD-10-PCS; principal; 2019-10-17)
PROC: B211YZZ Fluoroscopy of Multiple Coronary Arteries using Other Contrast (ICD-10-PCS; 2019-10-17)
PROC: B215YZZ Fluoroscopy of Left Heart using Other Contrast (ICD-10-PCS; 2019-10-17)
DX: I24.9 Acute ischemic heart disease, unspecified (principal); E44.1 Mild protein-calorie malnutrition; J96.10 Chronic respiratory failure, unspecified whether with hypoxia or hypercapnia; J44.9 Chronic obstructive pulmonary disease, unspecified; I10 Essential (primary) hypertension; F17.210 Nicotine dependence, cigarettes, uncomplicated; E78.5 Hyperlipidemia, unspecified; F41.9 Anxiety disorder, unspecified; I25.10 Atherosclerotic heart disease of native coronary artery without angina pectoris; I25.2 Old myocardial infarction; Z79.02 Long term (current) use of antithrombotics/antiplatelets; Z95.5 Presence of coronary angioplasty implant and graft; Z99.81 Dependence on supplemental oxygen; Z79.51 Long term (current) use of inhaled steroids; Z79.82 Long term (current) use of aspirin; Z79.899 Other long term (current) drug therapy; Z80.8 Family history of malignant neoplasm of other organs or systems; Z82.0 Family history of epilepsy and other diseases of the nervous system; Z82.49 Family history of ischemic heart disease and other diseases of the circulatory system; Z83.3 Family history of diabetes mellitus; Z82.3 Family history of stroke; Z68.22 Body mass index [BMI] 22.0-22.9, adult
CPT/HCPCS: 36415; 71045; 80048; 80053; 80061; 81001; 83735; 83880; 84443; 84484; 85025; 85610; 85730; 86141; 93005; 93306; 93458; 96374; 96375; 99152; G0378; J2250; J2405; Q9967

== ENCOUNTER → 2019-12-04 | Emergency (ER) | payer OTHER ==
[~2019-12-04] VITALS: Ht 177.8 cm; Wt 69.4 kg
[~2019-12-04] MED LIST changes: -ASPI-247; +CAR3125T PO; -CARV3.1240; -FLUT500M2 IN; -FORM1POW2; -HYDR-4833 PO; -IBUP1POW8; -IPRAAER6 IN; -LISI-275; +LISI10TA6 PO; -LORA-205 PO; +LORA0.5T12 PO; -NITR0.4S29 SL; -SERT100T PO
[2019-12-04 18:56] LABS: Basophils # (auto) 0 uL; Basophils % (auto) 0.2 % (0.0-2.0); Eosinophils # (auto) 0.2 uL; Eosinophils % (auto) 1.7 % (0.0-7.0); Hematocrit 45.5 % (41.0-53.0); Lymphocytes # (auto) 2.5 uL; Lymphocytes % (auto) 20.1 % (10.0-50.0); Mean Corpuscular Hemoglobin 30.7 pg (28.0-32.0); Mean Corpuscular Volume 92.9 fL (80.0-100.0); Neutrophils # (auto) 8.8 uL; Nucleated Red Blood Cells % 0.1 %; Platelet Count (auto) 413 10^3/uL (140-450); Red Cell Distribution Width 14.6 % (11.8-14.3); White Blood Cell 12.5 10^3/uL (4.4-10.8)
[2019-12-04 19:01] LABS: Albumin 3.3 g/dL (3.4-5.0); Anion Gap 5 (5-15); Blood Urea Nitrogen 21 mg/dL (7-18); Calcium 8.4 mg/dL (8.5-10.1); Carbon Dioxide 27 mmol/L (21-32); Chloride 103 mmol/L (98-107); Glucose 87 mg/dL (74-106); Potassium 4.9 mmol/L (3.5-5.1); Sodium 135 mmol/L (136-145)
[2019-12-04 19:07] LABS: Alanine Aminotransferase 28 U/L (16-61); Alkaline Phosphatase 91 U/L (45-117); Aspartate Aminotransferase 13 U/L (15-37); Bilirubin, Total 0.3 mg/dL (0.2-1.0); GFR African American 117 mL/min; GFR Non-African American 97 mL/min; Total Protein 6.7 g/dL (6.4-8.2)
[2019-12-05 01:28] LABS: Urine Bacteria NONE SEEN /hpf (None Seen); Urine Blood Negative /uL (Negative); Urine Mucus FEW (None Seen); Urine Specific Gravity 1.021 (1.001-1.035); Urine WBC 1 /hpf (0 - 3)
[2019-12-05 04:00] VITALS: BP 119/59
== END | disposition home or self-care (01) ==
LOC: ER 17:26
DX: J44.9 Chronic obstructive pulmonary disease, unspecified (principal); J20.9 Acute bronchitis, unspecified; F41.9 Anxiety disorder, unspecified; I25.10 Atherosclerotic heart disease of native coronary artery without angina pectoris; E78.5 Hyperlipidemia, unspecified; I10 Essential (primary) hypertension; I25.2 Old myocardial infarction; F17.210 Nicotine dependence, cigarettes, uncomplicated
CPT/HCPCS: 36415; 71046; 80053; 81001; 84484; 85025; 93005

== ENCOUNTER 2021-01-13 23:04 | Emergency (ER) | payer OTHER ==
[~2021-01-13] VITALS: Ht 177.8 cm; Wt 81.6 kg
[~2021-01-13 23:04] MED LIST changes: -CLOP75TA41 PO; +CLOP75TA70 PO; +LISI-648 PO; -LISI10TA6 PO; -LORA0.5T12 PO; +LORA0.5T20 PO
[2021-01-14] MEDS ORDERED: HYDROcodone-ACET 5/325MG TAB PO ONE (01:15)
[2021-01-14 03:34] VITALS: BP 124/83
== END 2021-01-14 04:01 | disposition home or self-care (01) ==
LOC: EDBD 23:04 → ER 23:08
DX: S01.81XA Laceration without foreign body of other part of head, initial encounter (principal); S09.8XXA Other specified injuries of head, initial encounter; F17.210 Nicotine dependence, cigarettes, uncomplicated; F12.10 Cannabis abuse, uncomplicated; J44.9 Chronic obstructive pulmonary disease, unspecified; E78.5 Hyperlipidemia, unspecified; I10 Essential (primary) hypertension; I25.2 Old myocardial infarction; W22.8XXA Striking against or struck by other objects, initial encounter; Y93.89 Activity, other specified; Y92.488 Other paved roadways as the place of occurrence of the external cause; Y99.8 Other external cause status
CPT/HCPCS: 12052; 70450; 72125

== ENCOUNTER 2021-05-09 16:41 | Inpatient (IN) | payer OTHER ==
[~2021-05-09] VITALS: Ht 177.8 cm; Wt 77.0 kg
[~2021-05-09 16:41] MED LIST changes: -LISI-648 PO; +LISI-716 PO
[2021-05-09] MEDS ORDERED: MORPHINE SULFATE 4 MG/ML SYR/VIAL IV ONE (17:00)
[2021-05-09] MEDS ORDERED: ONDANSETRON HCL 4 MG/2 ML VIAL IV ONE (17:00)
[2021-05-09] MEDS ORDERED: PANTOPRAZOLE 40 MG/10 ML VIAL INJ IV ONE (17:00)
[2021-05-09] MEDS ORDERED: SODIUM CHLORIDE 0.9% 500 ML IVB ONE (17:00)
[2021-05-09 18:38] LABS: Basophils # (auto) 0 10 ^3/uL (0-0.2); Basophils % (auto) 0.1 % (0.0-2.0); Eosinophils # (auto) 0 10 ^3/uL (0-0.8); Hematocrit 47.4 % (41.0-53.0); Hemoglobin 15.4 g/dL (13.5-17.5); Lymphocytes # (auto) 0.7 10 ^3/uL (0.4-5.4); Lymphocytes % (auto) 6.1 % (10.0-50.0); Mean Corpuscular Hemoglobin 31.1 pg (28.0-32.0); Mean Corpuscular Hgb Conc. 32.5 g/dL (32.0-36.0); Mean Corpuscular Volume 95.9 fL (80.0-100.0); Monocytes # (auto) 0.7 10 ^3/uL (0-1.3); Monocytes % (auto) 5.9 % (0.0-12.0); Neutrophils # (auto) 9.8 10 ^3/uL (1.6-8.6); Neutrophils % (auto) 87.9 % (37.0-80.0); Red Blood Cells 4.94 10^6/uL (4.5-5.90); Red Cell Distribution Width 17.5 % (11.8-14.3); White Blood Cell 11.1 10^3/uL (4.4-10.8)
[2021-05-09 18:55] LABS: Blood Urea Nitrogen 20 mg/dL (7-18); Calcium 9.1 mg/dL (8.5-10.1); Chloride 96 mmol/L (98-107); Glucose 113 mg/dL (74-106); Potassium 4.5 mmol/L (3.5-5.1); Sodium 132 mmol/L (136-145)
[2021-05-09 19:00] LABS: Alanine Aminotransferase 41 U/L (16-61); Albumin 3.7 g/dL (3.4-5.0); Alkaline Phosphatase 92 U/L (45-117); Amylase 41 U/L (25-115); Anion Gap 13 (5-15); Aspartate Aminotransferase 47 U/L (15-37); BUN/Creatinine Ratio 27.8; Bilirubin, Total 1.4 mg/dL (0.2-1.0); Carbon Dioxide 23 mmol/L (21-32); GFR African American 139 mL/min; GFR Non-African American 115 mL/min; Lipase 115 U/L (73-393); Total Protein 7.5 g/dL (6.4-8.2)
[2021-05-09 21:13] LABS: Urine Bacteria NONE SEEN /hpf (None Seen); Urine Blood 2+ /uL (Negative); Urine Mucus FEW (None Seen); Urine Specific Gravity 1.025 (1.001-1.035); Urine WBC <1 /hpf (0 - 3)
[2021-05-09] MEDS ORDERED: MORPHINE SULF INJ 2 MG/ML SYRINGE 1ML IV PRN (22:15)
[2021-05-09] MEDS ORDERED: DOCUSATE SOD 100 MG CAP PO PRN (22:15)
[2021-05-09] MEDS ORDERED: NITROGLYCERIN 0.4 MG SL TAB SL PRN (22:15)
[2021-05-09] MEDS ORDERED: ACETAMINOPHEN 325 MG TAB PO PRN (22:15)
[2021-05-09] MEDS ORDERED: LORazepam 0.5 MG TAB PO PRN (22:15)
[2021-05-09] MEDS ORDERED: ONDANSETRON HCL 4 MG/2 ML VIAL IV PRN (22:15)
[2021-05-09] MEDS ORDERED: cefTRIAXone 1GM/50ML D5W 50 ML IV ONE (23:15)
[2021-05-10] MEDS: HYDROcodone-ACET 5/325MG TAB PO PRN ×2 (04:41→21:12)
[2021-05-10 06:28] LABS: Basophils # (auto) 0 10 ^3/uL (0-0.2); Basophils % (auto) 0.2 % (0.0-2.0); Eosinophils # (auto) 0 10 ^3/uL (0-0.8); Eosinophils % (auto) 0.1 % (0.0-7.0); Hematocrit 41.4 % (41.0-53.0); Lymphocytes # (auto) 0.5 10 ^3/uL (0.4-5.4); Lymphocytes % (auto) 5.7 % (10.0-50.0); Mean Corpuscular Hemoglobin 32.5 pg (28.0-32.0); Mean Corpuscular Hgb Conc. 33.7 g/dL (32.0-36.0); Mean Corpuscular Volume 96.4 fL (80.0-100.0); Monocytes # (auto) 0.7 10 ^3/uL (0-1.3); Monocytes % (auto) 7.1 % (0.0-12.0); Neutrophils # (auto) 8.2 10 ^3/uL (1.6-8.6); Neutrophils % (auto) 86.9 % (37.0-80.0); Red Cell Distribution Width 17.3 % (11.8-14.3); White Blood Cell 9.5 10^3/uL (4.4-10.8)
[2021-05-10] MEDS: SODIUM CHLOR 0.9% PF (SALINE LOCK) 10ML VIAL/SYR IV SCH ×3 (06:31→21:12)
[2021-05-10 06:42] LABS: Partial Thromboplastin Time 27.7 sec (23.0-31.2)
[2021-05-10 06:46] LABS: Albumin 3.4 g/dL (3.4-5.0); Calcium 8.1 mg/dL (8.5-10.1); Potassium 4.6 mmol/L (3.5-5.1)
[2021-05-10 06:48] LABS: BUN/Creatinine Ratio 27.7
[2021-05-10 06:55] LABS: Bilirubin, Total 0.6 mg/dL (0.2-1.0); Total Protein 6.3 g/dL (6.4-8.2)
[2021-05-10] MEDS ORDERED: FAMOTIDINE (10MG/ML) 2ML VL IV SCH (10:00)
[2021-05-10] MEDS: ASCORBIC ACID 500 MG TAB PO SCH ×2 (10:17→21:11)
[2021-05-10] MEDS: CLOPIDOGREL BISULFATE 75 MG TAB PO SCH (10:18)
[2021-05-10] MEDS: MULTIPLE VITAMIN TAB PO SCH (10:18)
[2021-05-10] MEDS: ZINC SULFATE 220mg CAP or TAB PO SCH (10:18)
[2021-05-10] MEDS: CARVEDILOL 3.125 MG TAB PO SCH ×2 (10:20→21:43)
[2021-05-10 17:50] VITALS: BP 139/78
[2021-05-10] MEDS: PANTOPRAZOLE 40 MG/10 ML VIAL INJ IV SCH (21:11)
[2021-05-10] MEDS: SUCRALFATE 1 GM/10 ML ORAL SUSP PO SCH (21:11)
[2021-05-10 22:00] VITALS: BP 151/78
[2021-05-11 05:00] VITALS: BP 123/72
[2021-05-11] MEDS: HYDROcodone-ACET 5/325MG TAB PO PRN (05:39)
[2021-05-11] MEDS: SODIUM CHLOR 0.9% PF (SALINE LOCK) 10ML VIAL/SYR IV SCH (06:26)
[2021-05-11] MEDS: SUCRALFATE 1 GM/10 ML ORAL SUSP PO SCH ×2 (06:30→13:36)
[2021-05-11 08:00] VITALS: BP 133/73
[2021-05-11 09:00] VITALS: BP 133/73
[2021-05-11] MEDS: CLOPIDOGREL BISULFATE 75 MG TAB PO SCH (09:17)
[2021-05-11] MEDS: CARVEDILOL 3.125 MG TAB PO SCH (09:17)
[2021-05-11] MEDS: ASCORBIC ACID 500 MG TAB PO SCH (09:17)
[2021-05-11] MEDS: ZINC SULFATE 220mg CAP or TAB PO SCH (09:18)
[2021-05-11] MEDS: MULTIPLE VITAMIN TAB PO SCH (09:18)
[2021-05-11] MEDS: PANTOPRAZOLE 40 MG/10 ML VIAL INJ IV SCH (10:00)
[2021-05-11] MEDS ORDERED: ALBUTEROL SULF 2.5 MG/0.5ML(0.5%) NEB SOLN NEB PRN (10:15)
[2021-05-11 12:45] VITALS: BP 105/51
[2021-05-11 12:49] VITALS: BP 133/73
[2021-05-11] MEDS ORDERED: ASPI-543 PO (13:01)
== END 2021-05-11 13:35 | disposition home or self-care (01) | DRG 392 ==
LOC: ER 16:41 → EDBD 16:41 → TELE 22:12 → TELE-WESTW 05-10 16:45
PROVIDERS: ADMIT Nurse Practitioner Family; ATTEND Internal Medicine Geriatric Medicine
DX: K20.90 Esophagitis, unspecified without bleeding (principal); E87.1 Hypo-osmolality and hyponatremia; I50.9 Heart failure, unspecified; J44.9 Chronic obstructive pulmonary disease, unspecified; D72.829 Elevated white blood cell count, unspecified; Z20.822 Contact with and (suspected) exposure to COVID-19; F17.210 Nicotine dependence, cigarettes, uncomplicated; I11.0 Hypertensive heart disease with heart failure; I25.10 Atherosclerotic heart disease of native coronary artery without angina pectoris; R13.10 Dysphagia, unspecified; I25.2 Old myocardial infarction; Z82.0 Family history of epilepsy and other diseases of the nervous system; Z82.3 Family history of stroke; Z82.49 Family history of ischemic heart disease and other diseases of the circulatory system; Z83.3 Family history of diabetes mellitus; Z79.02 Long term (current) use of antithrombotics/antiplatelets
CPT/HCPCS: 36415; 71045; 74176; 80053; 81001; 82150; 83036; 83690; 83880; 84484; 85025; 85610; 85730; 87426; 93005; 93306; 94640; 96361; 96365; 96375; 96376; C9113; G0378; J0696; J2405; J3490